=== PATIENT | female | born 1970 | race Caucasian/White ===

== ENCOUNTER 2018-10-15 09:37 | Observation (INO) | payer MEDICAID ==
[~2018-10-15] VITALS: Ht 160 cm; Wt 77.1 kg
[2018-10-15 09:42] VITALS: Ht 160 cm; Wt 77.1 kg
[2018-10-15] MEDS ORDERED: CATAPRES0.1 MG (09:43)
[2018-10-15 10:19] LABS: HCG SERUM NEGATIVE (NEGATIVE)
[2018-10-15 10:22] LABS: ALBUMIN 2.9 g/dL (3.4-5.0); ANION GAP 13.6 mmol/L (8-16); BILIRUBIN - TOTAL 0.41 mg/dL (0.2-1.3); CALCIUM 8.8 mg/dL (8.5-10.1); CARBON DIOXIDE 25.3 mmol/L (21.0-32.0); CREATININE - SERUM 1.2 mg/dL (0.6-1.3); PROTEIN - SERUM 7.7 g/dL (6.4-8.2)
[2018-10-15 10:27] LABS: POTASSIUM - SERUM 2.9 mmol/L (3.5-5.1)
[2018-10-15 10:29] LABS: BASOPHILS 0.1 % (0-2); EOSINOPHILS 0.6 % (0-7); HEMATOCRIT 34.6 % (36.0-48.0); HEMOGLOBIN 11.9 g/dL (12-16); IMMATURE GRANULOCYTES 0.4 % (0-5); LYMPHOCYTES 17.1 % (15-50); MCHC 34.4 g/dL (31.0-37.0); MCV 84.4 fL (80.0-100.0); MEAN PLATELET VOLUME 8.9 fL (7.4-10.4); MONOCYTES 6.5 % (2-11); NEUTROPHILS 75.3 % (40-80); PLATELET COUNT 500 10x3/uL (130-400); RDW 12.9 % (11.5-14.5); WBC 16.4 10x3/uL (4.8-10.8)
[2018-10-15 10:50] LABS: INR 1.05 (0.85-1.17); PROTIME 13.2 SECONDS (11.6-15.0)
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
[2018-10-15 15:54] VITALS: BP 181/80
[2018-10-15 15:59] VITALS: BP 158/84
[2018-10-15 16:12] VITALS: BP 150/99
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
== END 2018-10-15 17:14 | disposition left against medical advice (07) ==
LOC: D.ER 09:37 → D.EDHOLD 11:59 → D.LD 11:59 → OBSVTIME 12:00 → D.LD 12:33
PROVIDERS: Family Medicine; ADMIT Surgery
DX: S41.111A Laceration without foreign body of right upper arm, initial encounter (principal); X99.1XXA Assault by knife, initial encounter; I10 Essential (primary) hypertension